=== PATIENT | male | born 1980 | race Caucasian/White ===

== ENCOUNTER 2016-08-21 11:25 | Emergency (ER) | payer SELFPAY ==
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
[2016-08-21] MEDS ORDERED: Diph,Pert(Acell),Tet Vac 0.5 ML SYR IM ONE (12:14)
--- NOTE | 2016-08-23 09:26 | RADIOLOGY REPORT ---
EXAM: CHEST, TWO VIEWS HISTORY: PAIN. TECHNIQUE: Frontal and lateral views of the chest were obtained. Comparison: None. FINDINGS: The heart size is normal. The lungs are clear. No pneumothorax. IMPRESSION: NEGATIVE CHEST EXAMINATION. JOB NUMBER: [id number] MTDD
== END 2016-08-21 12:21 | disposition home or self-care (01) ==
LOC: ER 11:25
DX: S21.112A Laceration without foreign body of left front wall of thorax without penetration into thoracic cavity, initial encounter (principal); R42 Dizziness and giddiness; W39.XXXA Discharge of firework, initial encounter
CPT/HCPCS: 71020; 90715; 99283

== ENCOUNTER 2019-04-07 22:10 | Emergency (ER) | payer SELFPAY ==
--- NOTE | 2019-04-07 22:31 | Emergency Department Record ---
History of Present Illness - General Chief Complaint: Rapid heartbeat Stated Complaint: HEART RACING,L ARM PAIN Time Seen by Provider: 04/07/19 22:24 Source: Patient Mode of Arrival: Ambulatory Limitations: No limitations - History of Present Illness Initial Comments: The patient is here due to a 2 week hx of intermittent L arm aching and numbness. She symptoms seem to come and go. He also has had chest discomfort off and on for the 2 weeks also. The symptoms come and go and last from minutes to hours. The patient does have some SOB, CAMPBELL, and sweating intermittently with the chest discomfort. Tonight he felt some palpitations which he also has had and skipped beats which made him anxious so he decided to come to the ER. Presently the patient is feeling better. He does have cardiac risk factors of heavy tobacco use and a family hx of CAD. MD Complaint: "Heart racing", Palpitations, "Skipped beats" Onset/Timin -: Days(s) Associated Symptoms: Chest pain, Nausea/vomiting, Other - Related Data Home Medications Medication Instructions Recorded Confirmed Last Taken No Home Med [NO HOME MEDS] 04/07/19 04/07/19 Unknown Allergies Allergy/AdvReac Type Severity Reaction Status Date / Time Sulfa (Sulfonamide Allergy Unknown PT UNSURE Verified 04/07/19 22:16 Antibiotics) OF REACTION Travel Screening - Travel/Exposure Within Last 30 Days Have you traveled within the last 30 days?: No - Travel/Exposure Within Last Year Have you traveled outside the [place] in the last year?: No - Additonal Travel Details Have you been exposed to anyone with a communicable illness?: No - Travel Symptoms Symptom Screening: None Review of Systems Constitutional: Denies: Chills, Fever Eyes: Denies: Eye discharge ENT: Denies: Congestion Respiratory: Reports: Dyspnea (intermittently.). Denies: Cough Cardiovascular: Reports: Chest pain, Palpitations Endocrine: Denies: Fatigue Gastrointestinal: Denies: Nausea Genitourinary: Denies: Dysuria Musculoskeletal: Denies: Arthralgia Skin: Denies: Bruising Past Medical History - SOCIAL HISTORY Smoking Status: Current every day smoker Alcohol Use: Occasional Drug Use: Heavy Drug Use Detail:: Marijuana - RESPIRATORY Hx Respiratory Disorders: No - CARDIOVASCULAR Hx Cardio Disorders: No - NEURO Hx Neuro Disorders: No - GI Hx GI Disorders: No - Hx Genitourinary Disorders: Yes Hx Kidney Stones: Yes - ENDOCRINE Hx Endocrine Disorders: No - MUSCULOSKELETAL Hx Musculoskeletal Disorders: No - PSYCH Hx Psych Problems: No - HEMATOLOGY/ONCOLOGY Hx Hematology/Oncology Disorders: No Family Medical History Any Significant Family History?: No Physical Exam - General General Appearance: Alert, Oriented x3, Cooperative, No acute distress - Head Head exam: Atraumatic, Normocephalic, Normal inspection - Eye Eye exam: Normal appearance, PERRL, EOMI - ENT Throat exam: Normal inspection. negative: Tonsillar erythema, Tonsillar exudate - Neck Neck exam: Normal inspection, Full ROM. negative: Tenderness - Respiratory Respiratory exam: Normal lung sounds bilaterally. negative: Respiratory distress - Cardiovascular Cardiovascular Exam: Regular rate, Normal rhythm, Normal heart sounds - GI/Abdominal GI/Abdominal exam: Soft, Normal bowel sounds. negative: Tenderness - Extremities Extremities exam: Normal inspection, Full ROM, Normal capillary refill, Other (Radial pulses 2+ and equal bilaterally.). negative: Tenderness - Back Back exam: Reports: Normal inspection. Denies: Vertebral tenderness - Neurological Neurological exam: Alert, Normal gait, Oriented X3, Reflexes normal. negative: Abnormal gait, Altered, Motor sensory deficit Course Vital Signs 04/07/19 04/07/19 22:16 22:29 Temperature 98.3 F Pulse Rate 83 Respiratory 20 Rate Blood Pressure 197/90 Pulse Ox 99 - Reevaluation(s) Reevaluation #1: The patient is doing very well at this time. He is reading presently on his phone. I did offer to order some pain medicine for the patient but he did refuse. 04/07/19 23:00 Reevaluation #2: The patient is doing a lot better. He is much more relaxed and calm and his CP has pretty much resolved. His HR is now 76 and the 2nd EKG is also very normal. I did explain to the patient that due to his risk factors and the nature of his complaints I do feel he does need a short stay to R/O MT. The patient is refusing that plan. I did then explain the risks of leaving which include going home and having an MT, stroke, becoming disabled and even dying. The patient fully understands and accepts the risks and does clearly have proper decision making capacity at this time. He is to F/U with a PCP as an outpatient and have a cardiac evaluated ordered at that time. The patient also was instructed to return to the ER for any new or worsening symptoms. 04/07/19 23:35 Medical Decision Making - Data Complexity MDM Data: Labs Ordered and/or Reviewed, X-Ray Ordered and/or Reviewed, EKG Ordered and/or Reviewed - Lab Data Result diagrams: 04/07/19 22:15 04/07/19 22:15 - EKG Data -: EKG Interpreted by Me EKG: No Acute Changes, Normal EKG - Radiology Data Radiology results: Report reviewed (CXR: Neg) Disposition Disposition: Discharge Clinical Impression: Atypical chest pain Disposition: Against Medical Advice Condition: (2) Stable Instructions: Heart Palpitations (ED) Additional Instructions: Please stop smoking and please see a family doctor for further evaluation. Please return to the ER for any new or worsening symptoms. Forms: Patient Portal Access Time of Disposition: 23:39 Quality - Quality Measures Quality Measures: N/A - Blood Pressure Screening View Details: Yes Does Patient Have Any of the Following: No Blood Pressure Classification: Hypertensive Reading Systolic Measurement: 197 Diastolic Measurement: 90 Screening for High Blood Pressure: < First Hypertensive BP, F/U Documented > [[id number]] First Hypertensive Follow-up Interventions: Referral to alternative/primary care provider.
[2019-04-07 22:42] LABS: ABSOLUTE NEUTROPHIL COUNT 4.25; EOS % 2.6 % (0-6); HEMATOCRIT 45.7 % (42.0-52.0); LYMPH % 41.4 % (16-45); MEAN CELL VOLUME 93.5 fl (81-97); MEAN CORPUSCULAR HEMOGLOBIN 30.7 pg (27-33); MEAN CORPUSCULAR HGB CONC 32.8 g/dl (32-36); MEAN PLATELET VOLUME 11.2 fl (7.4-10.4); PLATELET COUNT 232 K/uL (130-400); RED BLOOD COUNT 4.89 M/uL (4.40-5.70); RED CELL DISTRIBUTION WIDTH 13.2 % (11.5-14.5); WHITE BLOOD COUNT W/O DIFF 9.2 K/uL (4.2-12.2)
[2019-04-07 22:50] LABS: BLOOD UREA NITROGEN 13 mg/dL (6-20); CREATININE 1.1 mg/dL (0.7-1.2); EST GLOMERULAR FILTRATION RATE > 60 mL/min
--- NOTE | 2019-04-07 22:50 | RADIOLOGY REPORT ---
EXAMINATION: Two View Chest Radiographs EXAM DATE: 04/07/2019 10:47 PM TECHNIQUE: Frontal and lateral views INDICATION: L arm and chest pain. COMPARISON: None ENCOUNTER: Not applicable FINDINGS: The heart, mediastinum, and pulmonary vasculature are normal. No lung consolidation or pleural effu sions are present. No pneumothorax. IMPRESSION: No acute cardiopulmonary disease is present. Dictated by: Jody Riley MD on 04/07/2019 10:48 PM. .
[2019-04-07 22:51] LABS: TOTAL PROTEIN 7.4 g/dL (6.6-8.7)
[2019-04-07 22:53] LABS: GLUCOSE,RANDOM 114 mg/dL (74-109)
[2019-04-07 22:55] LABS: ALB/GLOB RATIO 1.6 (1.1-1.8); ALBUMIN 4.5 g/dL (4.0-5.0); ALKALINE PHOSPHATASE 88 U/L (40-129); ALT/SGPT 15 U/L (<41); AST/SGOT 16 U/L (10.0-50.0)
[2019-04-07 23:06] LABS: THYROID STIMULATING HORMONE 1.55 uIU/mL (0.270-4.20)
== END 2019-04-07 23:41 | disposition left against medical advice (07) ==
LOC: ER 22:10
DX: R07.89 Other chest pain (principal); R20.0 Anesthesia of skin; R42 Dizziness and giddiness; R11.2 Nausea with vomiting, unspecified; F17.210 Nicotine dependence, cigarettes, uncomplicated
CPT/HCPCS: 71046; 80053; 84443; 84484; 85025; 93005; 93010; 99285